=== PATIENT | female | born 1970 | race Caucasian/White ===

== ENCOUNTER → 2017-11-27 | Outpatient (CLI) | payer OTHER | LOC: BMCIMAGING 12:07 | PROVIDERS: ATTEND Nurse Practitioner Family | DX: Z13.83 Encounter for screening for respiratory disorder NEC (principal) ==

== ENCOUNTER 2018-11-02 10:41 | Emergency (ER) | payer OTHER ==
[2018-11-02] MEDS ORDERED: KETOROLAC 30 MG/1 ML SDV IVP ONE (11:02)
--- NOTE | 2018-11-02 11:02 | EDPHY ---
HPI/HX/ROS/PE/MDM Narrative: CHIEF COMPLAINT: Left hip pain HPI: The patient is a 48 y/o female complaining of severe left hip pain for the last week. She describes this as a burning "nerve pain" that sometimes radiates across her lower back and down her left thigh. Her pain is aggravated by sitting , lifting her left leg, and significantly worse with standing or bearing weight. Pain is manageable when lying down. She has attempted to treat her pain with Advil, massage, acupuncture, and chiropractic manipulation. Her chiropractor told her she had a "locked up SI joint" and performed manipulations on it without alleviation. She denies abdominal pain, weakness, paresthesias, urinary symptoms, fever, recent trauma or other precipitating event. She mentions she had a fibroid tumor first visualized during a that was removed two years later in 2006 after she developed similar severe "nerve pain." She had follow up imaging 1-2 years later that was normal. She is otherwise healthy. REVIEW OF SYSTEMS: A comprehensive 10 system review of systems is otherwise negative aside from elements mentioned in the history of present illness. PMH: Fibroid tumor removed 2006 SOCIAL HISTORY: Lives in [place]. . Employed. PHYSICAL EXAM: General:Patient is alert, in no acute distress. ENT:Eyes are normal to inspection. ENT inspection normal. Neck: Normal inspection. Full range of motion. Respiratory:No respiratory distress. Breath sounds normal bilaterally. Cardiovascular: Regular rate and rhythm. Strong peripheral pulses. Normal cap refill. Abdomen:The abdomen is nontender to palpation. There are no peritoneal signs. Back: Normal to inspection. No tenderness to palpation. Skin: Normal color. No rash. Warm and dry. Extremities: Normal appearance. Pain when lifting left leg while supine. Otherwise normal range of motion. Neuro: Oriented x3. Normal motor function. Normal sensory function. ED Course: This is a 48 y/o female who presents with a 1-week history of severe left hip pain with intermittent radiculopathy to her leg and lower back. She is neurovascularly intact. Doubt cauda equina syndrome. Presentation likely indicates uncomplicated lumbar radiculopathy. Plan for IV, labs, x-ray imaging of pelvis and lumbar spine, and symptomatic management. 30mg IV Toradol ordered. Labs unremarkable. Waiting on patient to provide urine sample. Lumbar and pelvis x-rays: degenerative changes Reassessed patient and discussed findings. She continues to be quite uncomfortable with any position changes Recommended CT for further evaluation, which she agrees to. 0.25mg IV Dilaudid ordered. Abdominal/Pelvis CT: degenerative disc disease L5-S1. IUD slightly malpositioned and poking into endometrium, right ovarian cyst. Reassessed patient and discussed findings. Recommended follow up with neurosurgery and OBGYN in the next week. Standard care instructions and return precautions discussed. Scripts for Percocet and Medrol dose pack provided. She is comfortable with this plan. MDM: This patient presents with left hip/ lower flank pain of unknown etiology. There is clearly a musculoskeletal component, as pain is heavily tied to movement, position and bearing weight on the affected extremity. Her abdominal exam is benign. As she describes that this feels similar to a time when a large fibroid was pressing on a nerve, a CT was performed to rule out this possibility as well as other potential abdominal or skeletal etiology, but this is thankfully negative. There are no signs of UTI or kidney stone. In the absence of other abnormal findings and given presence of significant DDD of L5/ S1, I think it is likely that this represents lumbar radiculopathy, and have started the patient on medrol dose-monty and given referral to NS. I see no signs of AAA, cauda equina, diverticulitis. - Data Points Imaging Results: Imaging Impressions Hip X-Ray 11/02/18 11:03 Impression: Minimal early degenerative change in both hips. Degenerative disk and degenerative joint disease lower lumbar spine. Lumbar Spine X-Ray 11/02/18 11:03 Impression: Multilevel degenerative disk and degenerative joint disease in the lumbar spine, most severe at L5-S1. Abdomen/Pelvis CT 11/02/18 12:20 Impression: 1. 3.8 cm cyst right adnexal region. Consider follow up pelvic ultrasound in 6- 8 weeks. 2. Malpositioned IUD with the body appearing to be embedded in the anterior myometrium in the lower uterine segment. 3. Mild constipation. No findings for diverticulitis. No CT findings for appendicitis. 4. Degenerative disk and degenerative joint disease in the lower lumbar spine, most severe at L5-S1. Results called and discussed with Vladislav Flores MD on 11/02/2018 at 12:59 p.m. Imaging: Discussed imaging studies w/ corn shredder Radiologist, I viewed and interpreted images myself Laboratory Results: Laboratory Results 11/02/18 11:15 11/02/18 11:15 11/02/18 11/02/18 11/02/18 12:48 11:15 11:15 WBC 5.56 10^3/uL 10^3/uL (3.80-9.50) RBC 4.92 10^6/uL 10^6/uL (4.18-5.33) Hgb 15.7 g/dL g/dL (12.6-16.3) Hct 45.7 % % (38.0-47.0) MCV 92.9 fL fL (81.5-99.8) MCH 31.9 pg pg (27.9-34.1) MCHC 34.4 g/dL g/dL (32.4-36.7) RDW 12.0 % % (11.5-15.2) Plt Count 257 10^3/uL 10^3/uL (150-400) MPV 10.9 fL fL (8.7-11.7) Neut % (Auto) 60.2 % % (39.3-74.2) Lymph % (Auto) 29.9 % % (15.0-45.0) [place] % (Auto) 8.1 % % (4.5-13.0) Eos % (Auto) 1.1 % % (0.6-7.6) Baso % (Auto) 0.5 % % (0.3-1.7) Nucleat RBC Rel Count 0.0 % % (0.0-0.2) Absolute Neuts (auto) 3.35 10^3/uL 10^3/uL (1.70-6.50) Absolute Lymphs (auto) 1.66 10^3/uL 10^3/uL (1.00-3.00) Absolute Monos (auto) 0.45 10^3/uL 10^3/uL (0.30-0.80) Absolute Eos (auto) 0.06 10^3/uL 10^3/uL (0.03-0.40) Absolute Basos (auto) 0.03 10^3/uL 10^3/uL (0.02-0.10) Absolute Nucleated RBC 0.00 10^3/uL 10^3/uL (0-0.01) Immature Gran % 0.2 % % (0.0-1.1) Immature Gran # 0.01 10^3/uL 10^3/uL (0.00-0.10) Sodium 138 mEq/L mEq/L (135-145) Potassium 4.2 mEq/L mEq/L (3.5-5.2) Chloride 106 mEq/L mEq/L (97-110) Carbon Dioxide 25 mEq/l mEq/l (22-31) Anion Gap 7 mEq/L mEq/L (6-14) BUN 16 mg/dL mg/dL (7-23) Creatinine 0.8 mg/dL mg/dL (0.6-1.0) Estimated GFR > 60 Glucose 95 mg/dL mg/dL (70-100) Calcium 9.0 mg/dL mg/dL (8.5-10.4) Urine Color YELLOW Urine Appearance CLEAR Urine pH 8.0 H (5.0-7.5) Ur Specific [place] 1.009 (1.002-1.030) Urine Protein NEGATIVE (NEGATIVE) Urine Ketones NEGATIVE (NEGATIVE) Urine Blood NEGATIVE (NEGATIVE) Urine Nitrate NEGATIVE (NEGATIVE) Urine Bilirubin NEGATIVE (NEGATIVE) Urine Urobilinogen NEGATIVE EU EU (0.2-1.0) Ur Leukocyte Esterase NEGATIVE (NEGATIVE) Urine Glucose NEGATIVE (NEGATIVE) Medications Given: Discontinued Medications Hydromorphone HCl (Dilaudid) 0.25 mg IVP EDNOW ONE Stop: 11/02/18 12:20 Last Admin: 11/02/18 12:27 Dose: 0.25 mg Ketorolac Tromethamine (Toradol) 30 mg IVP EDNOW ONE Stop: 11/02/18 11:03 Last Admin: 11/02/18 11:26 Dose: 30 mg General Time Seen by Provider: 11/02/18 10:54 Initial Vital Signs: Initial Vital Signs Temperature (C) 36.7 C 11/02/18 10:45 Heart Rate 82 11/02/18 10:45 Respiratory Rate 16 11/02/18 10:45 Blood Pressure 133/87 H 11/02/18 10:45 O2 Sat (%) 97 11/02/18 10:45 O2 Delivery Mode Room Air Allergies/Adverse Reactions: gluten [Gluten] Allergy (Mild, Verified 11/02/18 10:43) meperidine HCl [From Demerol] Allergy (Mild, Verified 11/02/18 10:43) ondansetron HCl [From Zofran] Allergy (Mild, Verified 11/02/18 10:43) Sulfa (Sulfonamide Antibiotics) [Sulfa(Sulfonamide Antibiotics)] Allergy (Mild, Verified 11/02/18 10:43) RASH, VOMITING Home Medications: Medication Instructions Recorded Budesonide/Formoterol Fumarate 06/17/12 [Symbicort 80-4.5 Mcg Inhaler] Dymista Nasal [place] 11/02/18 Singulair 11/02/18 methylPREDNISolone [Medrol Dose 1 each PO AD #1 ea 11/02/18 Monty] oxyCODONE/APAP 5/325 [Percocet 5 - 10 mg PO Q4-6PRN PRN #20 tab 11/02/18 5/325] Departure - Departure Disposition: Home, Routine, Self-Care Clinical Impression: Left hip pain, Lumbar radiculopathy Condition: Good Instructions: Oxycodone/Acetaminophen (By mouth), Methylprednisolone (By mouth) , Lumbar Radiculopathy (ED), Hip Pain (ED) Additional Instructions: 1. Take Medrol dose pack as prescribed. Complete the entire prescription. 2. Use Percocet as prescribed when needed for severe pain. This medication can make you constipated and drowsy. Do not use prior to driving. 3. Follow up with back specialist in the next week regarding the degenerative disc and joint disease (L5-S1) seen imaging today. 4. Follow up with your OBGYN regarding [id number] IUD and right ovarian cyst in the next week. For the cyst, it's recommended to get a follow up ultrasound in 6-8 weeks 5. Return to the ED for severe pain, weakness or numbness in your leg, urinary or bowel incontinence, fever, or other worsening of condition. Referrals: Bethel Smith MD [Primary Care Provider] - As per Instructions Galina Mcneill DO [Doctor of Osteopathy] - As per Instructions Vania Cunningham MD [Medical Doctor] - As per Instructions Prescriptions: methylPREDNISolone [Medrol Dose Monty] 1 each PO AD #1 ea oxyCODONE/APAP 5/325 [Percocet 5/325] 5 - 10 mg PO Q4-6PRN PRN #20 tab PRN Reason: For Pain Report Scribed for: Vladislav Flores Report Scribed by: Adriana Beckwith Date of Report: 11/02/18 Time of Report: 11:33 Physician Review and Approval Statement: Portions of this note were transcribed by an ED scribe. I personally performed the history, physical exam, and medical decision making; and confirm the accuracy of the information in the transcribed note.
[2018-11-02 11:32] LABS: PLATELET COUNT 257 10^3/uL (150-400)
[2018-11-02] MEDS ORDERED: HYDROmorphONE/DILAUDID 2 MG/ML INJ IVP ONE (12:19)
[2018-11-02 13:41] VITALS: BP 113/71
== END 2018-11-02 13:44 | disposition home or self-care (01) ==
DX: M16.0 Bilateral primary osteoarthritis of hip (principal); M51.36 Other intervertebral disc degeneration, lumbar region; N83.8 Other noninflammatory disorders of ovary, fallopian tube and broad ligament; T83.32XA Displacement of intrauterine contraceptive device, initial encounter; Y76.2 Prosthetic and other implants, materials and accessory obstetric and gynecological devices associated with adverse incidents
CPT/HCPCS: 96374; J1170; J1885

== ENCOUNTER → 2018-12-19 | Outpatient (CLI) | payer OTHER | LOC: FIMAGING 12:23 | PROVIDERS: ATTEND Obstetrics & Gynecology | DX: Z12.31 Encounter for screening mammogram for malignant neoplasm of breast (principal); Z87.42 Personal history of other diseases of the female genital tract; Z97.5 Presence of (intrauterine) contraceptive device ==